=== PATIENT | female | born 1985 | race African-American/Black ===

== ENCOUNTER 2020-04-20 15:42 | Emergency (ER) | payer OTHER ==
[2020-04-20 16:08] VITALS: BP 200/98; PULSE 98; TEMP 98.3; BMI 39.1
[2020-04-20] MEDS ORDERED: TETANUS AND DIPHTHERIA TOXOID 0.5 ML DISP.SYRIN IM ONE (16:31)
[2020-04-20] MEDS ORDERED: DIPHTH,PERTUSS(ACELL),TET 0.5 ML DISP.SYRIN IM ONE ×2 (16:52→16:53)
[2020-04-20] MEDS ORDERED: HEPATITIS B VIRUS VACCINE-PF 5 MCG/0.5 ML VIAL IM ONE (16:57)
--- NOTE | 2020-04-20 16:57 | PDOC ---
History of Present Illness - General Chief Complaint: Blood/Body Fluid Exposure SJR Stated Complaint: NEEDLE STICK Time Seen by Provider: 04/20/20 15:59 History Source: Patient Exam Limitations: No Limitations - History of Present Illness Initial Comments: 04/20/20 16:56 35-year-old female past medical history of hypertension diabetes presenting the ED after needlestick exposure. 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 Patient immediately washed the area with soap and water and applied pressure. Patient is currently finding out if the patient who she was stuck with a needle from has any communicable diseases. Patient is not up-to-date on tetanus and is on shot 2 of 3 of hepatitis B. Pt otherwise denies: fevers, chills, syncope, lightheadedness, dizziness, headaches, neck pain, chest pain, shortness of breath, palpitations, back pain, abdominal pain, nausea, vomiting, diarrhea, constipation. Past History - Medical History Allergies/Adverse Reactions: Allergies Allergy/AdvReac Type Severity Reaction Status Date / Time No Known Allergies Allergy Verified 04/20/20 15:56 CVA: No COPD: No Diabetes: Yes (NIDDM) HTN: Yes - Reproductive History Is Patient Now?: No - Psycho-Social/Smoking History Smoking History: Never smoked - Substance Abuse Hx (Audit-C & DAST Scrn) How often the patient has a drink containing alcohol: Never Score: In Men: 4 or > Positive; In Women: 3 or > Positive: 0 Screen Result (Pos requires Nsg. Audit-10AR): Negative *Physical Exam - Vital Signs Last Vital Signs Temp Pulse Resp BP Pulse Ox 98.3 F 98 H 20 200/98 H 98 04/20/20 15:56 04/20/20 15:56 04/20/20 15:56 04/20/20 15:56 04/20/20 15:56 - Physical Exam 04/20/20 17:01 Gen: AAOx 3, no acute distress, comfortable, no signs of respiratory distress HENT: atraumatic, normocephalic with no laceration or contusion. Nasal mucosa without erythema. Oropharynx without erythema or exudates. Mucous membranes moist. EYES: PERRL, EOM intact, conjunctiva pink NECK: supple; trachea midline; no JVD, no lymphadenopathy, or thyromegaly CV: RRR no murmurs, gallops, or rubs. CHEST: CTA b/l no wheezing, rales or rhonchi ABD: +BS/ND. no TTP; soft, no rebound, no guarding EXTREMITY: no cyanosis or erythema. 2+ dorsalis pedis, posterior tibial, and radial pulse. No pedal edema; no calf swelling or tenderness SKIN: no rash, warm and dry, no diaphoresis HEME: no purpura or ecchymosis NEURO: normal speech, CN II-XII intact, sensation intact, normal gait, no cerebellar deficits MS: 5/5 strength in all extremities, FROM intact in all extremities. 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 Pts advised of PEP side effects Pt to return tomorrow or Wednesday for results to give to PCP Labs that are back grossly WNL except glucose of 321 without signs or symptoms of DKA or HHS Pt appears well and is safe and stable for discharge with close follow up Supportive care instructions explained and given to pt. Reasons to return emergently to ER explained and given. Importance of follow up with PMD and other specialists as indicated stressed to pt. Pt verbalized understanding of instructions. Pt to follow up with PMD in 2 days. Discharge - Discharge Information Problems reviewed: Yes Clinical Impression/Diagnosis: Needle stick injury of finger Condition: Stable Disposition: HOME - Follow up/Referral - Patient Discharge Instructions Patient Printed Discharge Instructions: How to Handle Body Fluid Exposure -- Healthcare Worker Additional Instructions: YOU MUST FOLLOW UP WITH YOUR PCP - Post Discharge Activity Work/Back to School Note: Back to Work
[2020-04-20] MEDS ORDERED: HEPATITIS B VIRUS VACCINE-PF 20 MCG/1ML PRE-FILLED SYRINGE IM ONE (17:00)
[2020-04-20] MEDS ORDERED: HIV POST EXPOSURE PROPHYLAXIS KIT NR ONE (17:16)
[2020-04-20] MEDS ORDERED: HIV POST EXPOSURE PROPHYLAXIS KIT PO ONE (17:28)
[2020-04-20 18:25] LABS: BASO % 0.5 % (0-2.0); EOS % 1.5 % (0-4.5); HEMOGLOBIN 13.3 GM/dL (10.7-15.3); LYMPH % 34.5 % (8-40); MCH 28.2 pg (25.7-33.7); MEAN PLT VOLUME 8.9 fl (7.5-11.1); MONO % 7.5 % (3.8-10.2); PLATELET COUNT 160 K/MM3 (134-434); WHITE BLOOD COUNT 6.4 K/mm3 (4.0-10.0)
[2020-04-20 18:43] LABS: GAMMA GLUTAMYL TRANSPEPTIDASE 54 U/L (5-85)
[2020-04-20 18:52] LABS: ALBUMIN 3.9 g/dl (3.4-5.0); ALK PHOS 114 U/L (45-117); ANION GAP 9 MMOL/L (8-16); BILIRUBIN,TOTAL 0.3 mg/dL (0.2-1); BLOOD UREA NITROGEN 12.4 mg/dL (7-18); CALCIUM 8.9 mg/dL (8.5-10.1); CHLORIDE 100 mmol/L (98-107); CHOLESTEROL 237 mg/dL (50-200); CO2 27 mmol/L (21-32); GLUCOSE,RANDOM 321 mg/dL (74-106); LDH 233 U/L (84-246); PHOSPHOROUS 3.1 mg/dL (2.5-4.9); POTASSIUM 4.1 mmol/L (3.5-5.1); SGOT/AST 21 U/L (15-37); SGPT/ALT 35 U/L (13-61); SODIUM 136 mmol/L (136-145); TOT PROT 8.3 g/dl (6.4-8.2); TRIGLYCERIDES 191 mg/dL (0-150); URIC ACID 4.1 mg/dL (2.6-7.2)
[2020-04-24 07:14] LABS: HEP B CORE AB, TOT Negative (Negative)
== END 2020-04-20 18:12 | disposition home or self-care (01) ==
LOC: JERFT 15:42
PROC: 3E0234Z Introduction of Serum, Toxoid and Vaccine into Muscle, Percutaneous Approach (ICD-10-PCS; principal; 2020-04-20)
DX: S61.439A Puncture wound without foreign body of unspecified hand, initial encounter (principal)
CPT/HCPCS: 36415; 80053; 82465; 82977; 83615; 84100; 84478; 84550; 84702; 85025; 86704; 86706; 86707; 86708; 86709; 86780; 86803; 87340; 87389; 87902; 90715; 99284-25

== ENCOUNTER 2021-08-23 14:21 | Emergency (ER) | payer OTHER ==
[2021-08-23 14:37] VITALS: BP 155/85; PULSE 77; BMI 30.4
[2021-08-23] MEDS ORDERED: ACETAMINOPHEN 500 MG TABLET (FP) PO ONE (16:23)
[2021-08-23] MEDS ORDERED: ACETAMINOPHEN 500 MG TABLET (FP) ONE (16:47)
[2021-08-23 17:23] LABS: BASO % 0.9 % (0-2.0); HEMATOCRIT 32.8 % (32.4-45.2); HEMOGLOBIN 10.9 GM/dL (10.7-15.3); LYMPH % 30.8 % (8-40); MCHC 33.1 g/dl (32.0-36.0); MEAN CELL VOLUME 75.4 fl (80-96); MEAN PLT VOLUME 8.3 fl (7.5-11.1); MONO % 6.5 % (3.8-10.2); NEUT % 60.8 % (42.8-82.8); PLATELET COUNT 175 10^3/uL (134-434); RBC 4.35 M/mm3 (3.60-5.2); RDW 14.4 % (11.6-15.6); WHITE BLOOD COUNT 4.5 K/mm3 (4.0-10.0)
[2021-08-23 17:44] LABS: CHLORIDE 106 mmol/L (98-107); SODIUM 139 mmol/L (136-145)
[2021-08-23 17:46] LABS: ANION GAP 5 MMOL/L (8-16); BLOOD UREA NITROGEN 15.8 mg/dL (7-18); CO2 28 mmol/L (21-32)
[2021-08-23 17:47] LABS: ALBUMIN 3.6 g/dl (3.4-5.0); GLUCOSE,RANDOM 91 mg/dL (74-106)
[2021-08-23 17:49] LABS: CREATININE 0.7 mg/dL (0.55-1.3)
[2021-08-23 17:50] LABS: SGOT/AST 23 U/L (15-37); SGPT/ALT 24 U/L (13-61)
[2021-08-23 17:51] LABS: BILIRUBIN,TOTAL 0.4 mg/dL (0.2-1); TOT PROT 8.1 g/dl (6.4-8.2)
[2021-08-23 17:52] LABS: ALK PHOS 81 U/L (45-117)
== END 2021-08-23 19:26 | disposition home or self-care (01) ==
LOC: JER 14:21
DX: D64.9 Anemia, unspecified (principal)
CPT/HCPCS: 36415; 80053; 82550; 82553; 84484; 85025; 93005; 93010; 99284-25

== ENCOUNTER 2022-01-10 16:49 | Emergency (ER) | payer OTHER ==
[2022-01-10 17:17] VITALS: PULSE 73; TEMP 98.3; BMI 31.8
[2022-01-10] MEDS ORDERED: ACETAMINOPHEN 325 MG TABLET (FP) PO ONE (17:56)
[2022-01-10] MEDS ORDERED: ACETAMINOPHEN 325 MG TABLET (FP) ONE (18:06)
[2022-01-10 18:10] LABS: BASO % 1.1 % (0-2.0); EOS % 0.6 % (0-4.5); HEMATOCRIT 26.8 % (32.4-45.2); HEMOGLOBIN 8.5 GM/dL (10.7-15.3); MCH 21.3 pg (25.7-33.7); MCHC 31.8 g/dl (32.0-36.0); MEAN CELL VOLUME 67.2 fl (80-96); MEAN PLT VOLUME 7.9 fl (7.5-11.1); MONO % 7.2 % (3.8-10.2); NEUT % 55.1 % (42.8-82.8); PLATELET COUNT 205 10^3/uL (134-434); RBC 3.99 M/mm3 (3.60-5.2); RDW 16.7 % (11.6-15.6); WHITE BLOOD COUNT 4.4 K/mm3 (4.0-10.0)
[2022-01-10 18:40] LABS: CALCIUM 8.7 mg/dL (8.5-10.1)
[2022-01-10 18:41] LABS: ALBUMIN 3.7 g/dl (3.4-5.0); BLOOD UREA NITROGEN 19.6 mg/dL (7-18)
[2022-01-10 18:44] LABS: CREATININE 0.8 mg/dL (0.55-1.3)
[2022-01-10 18:45] LABS: BILIRUBIN,TOTAL 0.3 mg/dL (0.2-1); TOT PROT 7.7 g/dl (6.4-8.2)
[2022-01-10 19:07] LABS: ANISOCYTOSIS 2+; MACROCYTOSIS 0; OVALOCYTE 1+; TARGET CELLS 1+
[2022-01-10 21:41] VITALS: BP 155/67
== END 2022-01-10 21:47 | disposition home or self-care (01) ==
LOC: JER 16:49
DX: R06.02 Shortness of breath (principal); M25.562 Pain in left knee
CPT/HCPCS: 36415; 71046-TC-FY; 73562-TC-LT-FY; 80053; 84484; 85025; 93005; 93010; 99285-25

== ENCOUNTER 2022-11-12 21:01 | Emergency (ER) | payer OTHER ==
[2022-11-12 21:34] VITALS: BP 189/89; PULSE 81; RESP 20; TEMP 98.5; BMI 32.0
[2022-11-12 22:26] LABS: HEMATOCRIT 24.9 % (32.4-45.2); HEMOGLOBIN 8.2 G/dL (10.7-15.3); MCH 20.2 pg (25.7-33.7); MCHC 32.9 g/dl (32.0-36.0); MEAN CELL VOLUME 61.6 fl (80-96); MEAN PLT VOLUME 9.1 fl (7.5-11.1); PLATELET COUNT 208.5 10^3/uL (134-434); RBC 4.05 10^6/uL (3.60-5.2); RDW 19.7 % (11.6-15.6); WHITE BLOOD COUNT 5.6 10^3/uL (4.0-10.8)
[2022-11-12 22:30] LABS: HCG,QUALITATIVE URINE Negative
[2022-11-12 22:39] LABS: ALBUMIN 3.8 g/dl (3.4-5.0); BILIRUBIN,TOTAL 0.4 mg/dl (0.2-1); CALCIUM 8.5 mg/dl (8.5-10); CREATININE 0.7 mg/dl (0.55-1.3); TOT PROT 7.7 g/dl (6.4-8.2)
== END 2022-11-12 23:04 | disposition home or self-care (01) ==
LOC: FER 21:01
DX: D64.9 Anemia, unspecified (principal); Z20.822 Contact with and (suspected) exposure to COVID-19
CPT/HCPCS: 0241U-QW; 36415; 80053; 81003; 84703; 85027; 93005; 99284-25